=== PATIENT | female | born 1970 ===

== ENCOUNTER → 2019-01-06 | Outpatient (CLI) | payer OTHER ==
[~2019-01-06] VITALS: Ht 170.2 cm; Wt 96.2 kg
[~2019-01-06] MED LIST: ADDERALL 15 MG15 MG PO; GABAPENTIN 100100 MG PO; MODAFINIL200 MG PO; NABUMETONE 500500 M1 PO; NORCO 10-325 T1 EACH PO; OLOPATADINE H30.5 GM NASAL; TRAMADOL 50 MG50 MG PO; VENTOLIN HFA 1818 GM INH; WELLBUTRIN XL300 MG PO; ZANAFLEX4 MG PO
--- NOTE | ~2019-01-06 | HPC ---
[facility] [place] [facility] [address] [place] [address] PAIN MANAGEMENT CONSULTATION Name: DIANE ZAYAS Room #: REG [facility] Curt#: [id number] Admission: 01/06/19 ������������������ Attend Phys: Jason Rinaldi MD Discharge: ������������������ Date of : 70 Report #: [id number] THIS REPORT FOR: //name// CC: [facility] physician/PCP Jason Rinaldi DATE OF SERVICE: 01/06/2019 CHIEF COMPLAINT: Low back pain, now with radiation into the hips and numbness into the lower extremities. HISTORY OF PRESENT ILLNESS: The patient has chronic back pain. Much of her pain is spondylitic, although she has multiple pain generators. She was treated with radiofrequency ablation in the fall of 2017 and had a nice response. When she was last seen, it was at [facility]. Her left-sided RFL was performed in March and then she had it repeated on the opposite side in June. It has only been within the last few months that she has been complaining of more pain. It should be noted, however, the pain is different. She describes her pain as low back, but radiation to the hip and pain moves into her legs with numbness and tingling. It increases when she first stands or when she gets up. It is burning, shooting, cramping, sharp and throbbing. Her intensity is a 7/10. ALLERGIES: TO SULFA AND LEVAQUIN. MEDICATIONS: Wellbutrin, tizanidine, tramadol and nabumetone. PAST MEDICAL HISTORY: Significant for shoulder surgery in 2004, cholecystectomy in 2015 and intermittent depression, which has been chronic and she follows with a psychiatrist. SOCIAL HISTORY: She works part-time at home in [place]. She does not go into the office. 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 She has a 16-year-old and a 11-year-old. She reports that she left full-time work because of pain. She denies use of tobacco. Drinks alcohol 1 or 2 beverages per week; this is generally in a social setting. She is . REVIEW OF SYSTEMS: Positive for some weight gain and complaint of fatigue and weakness. She wears glasses. She complains of some hearing loss after a ruptured eardrum. She has asthma, which flares occasionally, but is not currently present. In the past, she has had issues with constipation, but denies them today. Frequent nocturia. She fell in November while in [place], landing on her head, suffering a concussion. She has recovered fairly fully from that. She was not seen by a medical professional. She reports a history of depression. [facility] [place] [facility] [address] [place] [address] PAIN MANAGEMENT CONSULTATION Name: DIANE ZAYAS Room #: REG [place]ETTE Elias#: [id number] Admission: 01/06/19 ������������������ Attend Phys: Jason Rinaldi MD Discharge: ������������������ Date of : 70 Report #: [id number] PHYSICAL EXAMINATION: She is a very pleasant 48-year-old female. She moves independently from sitting to standing position. Her gait demonstrates some slight weakness. She was little unsteady when she turned and returned to the room. She has good range of motion of the lumbar spine in flexion and extension. She was previously painful in extension from her spondylitic pain that is showing signs that this is still in force. She has mild tenderness over the right and left sacroiliac joints, right worse than the left. She has decreased sensation in the feet in the L5 distribution. Generalized weakness is noted as described in the gait exam. Deep tendon reflexes are brisk, 2+ at knees and ankles and symmetrical. IMAGING DATA: No x-rays of the spine are available to me at this time. IMPRESSION: Chronic low back pain with spondylosis and radiculopathy. PLAN: I would like to hold off on repeating her RFL. It requires treatment of 4 separate joints on each side. An epidural steroid injection may provide relief of multiple pain generators, including the new signs of radiculopathy. We will seek preauthorization for the treatment and have her come back in the clinic in about a week. If she does not respond and if her pain continues to worsen, I would consider repeating her RFL. She has not taken pain medication nor has she had a prescription that I can see on the prescription drug monitoring program information since the prescription provided for her in August. We discussed the use of intermittent pain medication when the pain is very severe. It is clear that she does not use it every day. I provided her with 60 tablets at that time and repeated the prescription for her today. She will carefully safeguard her medications under terms of written opioid agreement, which was reviewed and signed. ��������������������������������������������� ���������������������������������������� By: ��������������������������������������������� [id number] Jason Rinaldi MD /nt
[2019-01-06 12:56] VITALS: BP 115/83
--- NOTE | 2019-01-06 13:15 | NUR ---
Pain Clinic Assessment: 1. History of Osteoarthritis: Not Applicable History of Rheumatoid Arthritis: Not Applicable 2. Height: 5 ft. 7 in. 170.2 cm. Weight: 212.0 lb. oz. 96.163 kg. Patient's BMI: 33.2 3. Vital Signs: BP: 115/83 Pulse: 97 Resp: 16 Temp: 02 Sat: 98 ECG Mon: 4. Pain Intensity: 6-7 5. Fall Risk: Dizziness: Needs help standing or walking: Fallen in the last 3 months: Fall risk comments: 6. Patient on Blood Thinner: None 7. History of Hypertension: N 8. Opioid Therapy greater than 6 weeks: Y Opiate Contract Signed: 9. Risk Assessment Tool Provided: 10. Functional Assessment Tool: 11. Recreational Drug Use: Never Drug Type: Tobacco Use: Never Smoker Tobacco Type: Amount or Packs/day: How Many Years: Alcohol Use: Yes Frequency: Weekly Quant: 1-2
== END ==
LOC: PAIN 06:57
DX: M47.26 Other spondylosis with radiculopathy, lumbar region (principal); Z79.899 Other long term (current) drug therapy

== ENCOUNTER → 2019-01-13 | Outpatient (CLI) | payer OTHER ==
[~2019-01-13] VITALS: Ht 170.2 cm; Wt 98.4 kg
--- NOTE | ~2019-01-13 | HPC ---
[facility] [place] [address] PAIN MANAGEMENT CONSULTATION Name: DIANE ZAYAS Room #: REG ODETTE Elias#: [id number] Admission: 01/13/19 ������������������ Attend Phys: Jason Rinaldi MD Discharge: ������������������ Date of : 70 Report #: [id number] THIS REPORT FOR: //name// CC: [facility] physician/PCP Jason Rinaldi DATE OF SERVICE: 01/13/2019 Followup visit for lumbar radiculopathy. The patient was last seen on 01/06/2019 and we received preauthorization to proceed with lumbar epidural injection. We would like to evaluate the response to this injection before we would proceed back to repeat her lumbar medial branch radiofrequency. That was helpful for her mid back pain, but she now has radicular symptoms. It should be noted that during the performance of the injection, it was clear that she has evidence of an L4-L5 anterolisthesis. This could be the cause of post lumbar radicular symptoms as well as her spondylitic pain. Physical exam and findings were unchanged from her visit just 1 week ago. IMPRESSION: Low back pain with radiculopathy and spondylosis. PROCEDURE: Epidural injection, L4-L5, under fluoroscopic guidance. DESCRIPTION OF PROCEDURE: She was taken to the fluoroscopic suite and placed prone. Skin prepped with ChloraPrep. Skin anesthetized over the L4-L5 interspace and a 20-gauge Tuohy epidural needle advanced in the epidural space with loss of resistance technique. No blood or CSF was aspirated. A 1 mL of Omnipaque injected. Good spread of dye observed bilaterally throughout the epidural space. It was then followed by 3 mL of 0.5% lidocaine mixed with 80 mg triamcinolone. She tolerated the procedure well. She was observed for 45 minutes and discharged. Followup visit planned as needed in 1 month or 2 months. We will consider radiofrequency if necessary. ��������������������������������������������� ���������������������������������������� By: ��������������������������������������������� [id number] [id number] Jason Rinaldi MD /nt
[2019-01-13 14:31] VITALS: BP 133/78
--- NOTE | 2019-01-13 14:42 | NUR ---
Pain Clinic Assessment: 1. History of Osteoarthritis: Not Applicable History of Rheumatoid Arthritis: Not Applicable 2. Height: 5 ft. 7 in. 170.2 cm. Weight: 217.0 lb. oz. 98.431 kg. Patient's BMI: 34.0 3. Vital Signs: BP: 133/78 Pulse: 94 Resp: 16 Temp: 02 Sat: 97 ECG Mon: 4. Pain Intensity: 7 5. Fall Risk: Dizziness: Y Needs help standing or walking: N Fallen in the last 3 months: N Fall risk comments: 6. Patient on Blood Thinner: None 7. History of Hypertension: N 8. Opioid Therapy greater than 6 weeks: Y Opiate Contract Signed: 01/06/19 9. Risk Assessment Tool Provided: Opioid Risk Tool 10. Functional Assessment Tool: 11. Recreational Drug Use: Never Drug Type: Tobacco Use: Never Smoker Tobacco Type: Amount or Packs/day: How Many Years: Alcohol Use: Yes Frequency: Weekly Quant: 1-2
== END | disposition home or self-care (01) ==
LOC: PAIN 06:55
DX: M47.26 Other spondylosis with radiculopathy, lumbar region (principal); G89.29 Other chronic pain; Z88.2 Allergy status to sulfonamides; Z88.8 Allergy status to other drugs, medicaments and biological substances; Z79.899 Other long term (current) drug therapy; Z79.891 Long term (current) use of opiate analgesic; Z98.890 Other specified postprocedural states

== ENCOUNTER → 2019-09-05 | Outpatient (CLI) | payer OTHER ==
[~2019-09-05] VITALS: Ht 170.2 cm; Wt 94.8 kg
[~2019-09-05] MED LIST changes: +ALLEGRA ALLERGY60 MG PO; +LEVO-T25 MCG PO; +MEDROLDOSEPACK PO; +ZANAFLEX4 M2 PO
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
[2019-09-05 13:02] VITALS: BP 106/79
--- NOTE | 2019-09-05 13:20 | NUR ---
Pain Clinic Assessment: 1. History of Osteoarthritis: Not Applicable History of Rheumatoid Arthritis: Not Applicable 2. Height: 5 ft. 7 in. 170.2 cm. Weight: 209.0 lb. oz. 94.802 kg. Patient's BMI: 32.7 3. Vital Signs: BP: 106/79 Pulse: 83 Resp: 16 Temp: 02 Sat: 99 ECG Mon: 4. Pain Intensity: 6 5. Fall Risk: Dizziness: N Needs help standing or walking: N Fallen in the last 3 months: N Fall risk comments: 6. Patient on Blood Thinner: None 7. History of Hypertension: N 8. Opioid Therapy greater than 6 weeks: Y Opiate Contract Signed: 01/06/19 9. Risk Assessment Tool Provided: Opioid Risk Tool 10. Functional Assessment Tool: 11. Recreational Drug Use: Never Drug Type: Tobacco Use: Never Smoker Tobacco Type: Amount or Packs/day: How Many Years: Alcohol Use: Yes Frequency: Quant:
== END ==
LOC: PAIN 06:31
DX: M54.16 Radiculopathy, lumbar region (principal)

== ENCOUNTER → 2019-11-14 | Outpatient (CLI) | payer OTHER ==
[~2019-11-14] VITALS: Ht 170.2 cm; Wt 97.9 kg
[2019-11-14 13:24] VITALS: BP 112/80
--- NOTE | 2019-11-14 13:52 | NUR ---
Pain Clinic Assessment: 1. History of Osteoarthritis: Not Applicable History of Rheumatoid Arthritis: Not Applicable 2. Height: 5 ft. 7 in. 170.2 cm. Weight: 215.8 lb. oz. 97.886 kg. Patient's BMI: 33.8 3. Vital Signs: BP: 112/80 Pulse: 83 Resp: 16 Temp: 02 Sat: 97 ECG Mon: 4. Pain Intensity: 6 5. Fall Risk: Dizziness: Y Needs help standing or walking: N Fallen in the last 3 months: N Fall risk comments: 6. Patient on Blood Thinner: None 7. History of Hypertension: N 8. Opioid Therapy greater than 6 weeks: Y Opiate Contract Signed: 01/06/19 9. Risk Assessment Tool Provided: Opioid Risk Tool 10. Functional Assessment Tool: 11. Recreational Drug Use: Never Drug Type: Tobacco Use: Never Smoker Tobacco Type: Amount or Packs/day: How Many Years: Alcohol Use: Yes Frequency: Weekly Quant: 2/WEEK
--- NOTE | 2019-11-15 12:50 | HPC ---
[facility] [address] [address] PAIN MANAGEMENT CONSULTATION Name: PAWAN YAJAIRADIANE Room #: REG ODETTE Elias#: [id number] Admission: 11/14/19 Attend Phys: Moraima Mac Discharge: Date of : 70 Report #: [id number] THIS REPORT FOR: cc: FAM - No family physician/PCP FAM - No family physician/PCP Moraima Mac DATE OF SERVICE: 11/14/2019 CHIEF COMPLAINT: Low back pain with radiculopathy. HISTORY OF PRESENT ILLNESS: This is a 49-year-old female who returns to the pain clinic today for refill of her medications. She has been a stable patient of Dr. Rinaldi for quite some time at [facility] and then recently here at [facility]. She takes oral medications and periodic epidurals. Her last epidural was performed in January. The patient reports she had substantial relief and has been doing quite well since that injection. Today, the patient reports the pain score at 6/10. Pain is located across the lower back, into her buttocks and numbness and tingling that runs into her right foot, not having significant leg pain today. Her pain is increased with standing, walking or sitting for prolonged periods of time. She feels that cold, ice and medication is very beneficial in controlling her pain. Today, she would like refills of her prescriptions as well as to schedule a lumbar epidural steroid injection. She is getting ready to go out of town and feels that the injection would be beneficial prior to increased activity. ALLERGIES: SULFA, LEVAQUIN and AVELOX. CURRENT LIST OF MEDICATIONS: Synthroid, tizanidine 4 mg at bedtime, tramadol 50 mg t.i.d., hydrocodone p.r.n., Rina, albuterol, gabapentin p.r.n., bupropion and nabumetone daily. PQRS: The patient denies rheumatoid or osteoarthritis. Height is 5 feet 7 inches. Weight is 215, BMI is 33. Vital signs: Blood pressure 112/80, pulse is 83, respirations 16, oxygen sat is 97, pain score is 6/10. Complains of slight dizziness, does not need help walking or standing, has not fallen in the last 3 months. The patient denies any blood thinners or medicines for hypertension. Opioid therapy is greater than 6 weeks; therefore, an opioid signed contract is on the chart. Risk assessment tool is low. Functional assessment is 51/60. Recreational drug use, she denies. She is not a smoker and occasionally drinks alcohol. According to the prescription monitoring system, the patient is filling appropriately for her medications. Her morphine mEq is 20-25 morphine mEq per day according to the CDC guidelines. [address] [address] PAIN MANAGEMENT CONSULTATION Name: DIANE ZAYAS Room #: REG CLI M.Robin#: [id number] Admission: 11/14/19 Attend Phys: Moraima Mac Discharge: Date of : 70 Report #: [id number] PHYSICAL EXAMINATION: GENERAL: This is alert and orientated 49-year-old female who appears her stated age, placing her current pain score at 6/10. HEENT: Normocephalic, atraumatic. Extraocular eye muscles are intact. Mucous membranes are moist. MUSCULOSKELETAL: She has an antalgic gait. She moves from sitting to standing position, but does have increased pain when standing. She has tenderness over her sacroiliac joint on her right greater than left, but tenderness as well in the lumbosacral region, radiates into her right hip. She has numbness and tingly located in her right foot. This does follow the L4-L5 dermatomal distribution. The patient has good range of motion of the lumbar spine in the flexion and extension. Lower extremity strength judged to be 5/5 in all major muscle groups. We reviewed the fact that opiate medications are being used to provide analgesia adequate to support activities of daily living, not attempting to achieve a specific pain score on the 0-10 Visual Analog Scale. The current opiate medications are providing sufficient analgesia to allow the patient to participate in activities of daily living. The patient is not exhibiting any aberrant behavior suggestive of drug diversion. The patient is not having any adverse reactions to medications. The patient is not suffering from daytime somnolence or mental acuity changes. The patient is managing opiate-induced constipation with appropriate [id number] agents and dietary considerations. The patient was counseled on concern for caution with operating a motor vehicle while using opiate medications. IMPRESSION: 1. Chronic low back pain with spondylosis. 2. Lumbar radiculopathy. 3. Medication management under terms of written opioid agreement. PLAN: 1. We discussed treatment options with the patient today. The patient is requesting another lumbar epidural steroid injection. I believe that based on her good relief of greater than 80% of her last injection in January, which has significantly decreased her pain for greater than 8 months, a repeat of this injection would be beneficial for this patient. I believe the L4-L5 injection epidural steroid injection may decrease her discomfort as it has in the past. 2. We will seek authorization for this procedure and try to obtain authorization prior to her going out of town next week to be performed by Dr. Jason Rinaldi. 3. Today, we will refill her tramadol 50 mg tablets, #90 as well as hydrocodone 10/325, #75. This is a slight increase for her of this medication since she is going out of town, giving her 15 extra pills if need be when she is active on her vacation. 4. We will refill tizanidine 4 mg at bedtime, #30 with one additional refill [facility] [address] [place] [address] PAIN MANAGEMENT CONSULTATION Name: DIANE ZAYAS Room #: REG ODETTE Elias#: [id number] Admission: 11/14/19 Attend Phys: Moraima Mac Discharge: Date of : 70 Report #: [id number] and nabumetone 500 mg, #30 with one additional refill. All this medicine will be sent electronically to her pharmacy. 5. This case was discussed with Dr. Jason Rinaldi who did see the patient as well and collaborated care. <ELECTRONICALLY SIGNED> By: Moraima Mac 11/15/19 1250 [id number] Moraima Mac /nt
== END ==
LOC: PAIN 06:41
DX: M47.816 Spondylosis without myelopathy or radiculopathy, lumbar region (principal); M54.16 Radiculopathy, lumbar region; F11.20 Opioid dependence, uncomplicated; Z88.2 Allergy status to sulfonamides; Z88.8 Allergy status to other drugs, medicaments and biological substances; Z79.811 Long term (current) use of aromatase inhibitors; Z79.1 Long term (current) use of non-steroidal anti-inflammatories (NSAID); Z79.899 Other long term (current) drug therapy

== ENCOUNTER → 2019-11-21 | Outpatient (CLI) | payer OTHER ==
[~2019-11-21] VITALS: Ht 170.2 cm; Wt 97.0 kg
[~2019-11-21] MED LIST changes: +SYMBICORT160 MCG/4. INH
--- NOTE | ~2019-11-21 | HPC ---
[facility] [place] [address] PAIN MANAGEMENT CONSULTATION Name: DIANE ZAYAS Room #: REG ODETTE Curt#: [id number] Admission: 11/21/19 Attend Phys: Jason Rinaldi MD Discharge: Date of : 70 Report #: [id number] THIS REPORT FOR: cc: [facility] - No family physician/PCP [facility] - No family physician/PCP Jason Rinaldi MD ~ CC: [facility] physician/PCP Jason Rinaldi DATE OF SERVICE: 11/21/2019 Followup visit for chronic low back pain with radiculopathy. The patient returns to pain clinic today for repeat epidural injection. She has had good response to these injections performed intermittently. She has known degenerative disease of her lumbar spine and her radicular symptoms consistent with her changes at L4-L5. Her last injection was performed there and it has been almost 10 months. Today, she describes her pain prior to the injection as a 6/10. It is worse with standing and weightbearing and follows a dermatomal distribution into the legs. PHYSICAL EXAMINATION: Blood pressure 124/89, heart rate 56, respirations 16, BMI 33.5. She ambulates without difficulty. Straight leg raising bilaterally is uncomfortable radiating pain into the legs following a dermatomal distribution of L4-L5. IMPRESSION: Lumbar radiculopathy. PROCEDURE: Epidural steroid injection. After informed consent, she was taken to the fluoroscopic suite, placed prone, skin prepped with ChloraPrep. Skin anesthetized over L4-L5. A 20-gauge Tuohy epidural needle advanced in the epidural space with loss of resistance. There was no blood or CSF aspirated. A 1 mL of Omnipaque injected. Good spread of dye observed into the epidural space followed by 3 mL of 0.5% lidocaine mixed with 80 mg triamcinolone. She tolerated the procedure well and was observed for 45 minutes and discharged. Follow up as needed. By: 1220 [id number] Jason Rinaldi MD /nt
[2019-11-21 10:36] VITALS: BP 124/89
--- NOTE | 2019-11-21 10:42 | NUR ---
Pain Clinic Assessment: 1. History of Osteoarthritis: Not Applicable History of Rheumatoid Arthritis: Not Applicable 2. Height: 5 ft. 7 in. 170.2 cm. Weight: 213.8 lb. oz. 96.979 kg. Patient's BMI: 33.5 3. Vital Signs: BP: 124/89 Pulse: 56 Resp: 16 Temp: 02 Sat: 98 ECG Mon: 4. Pain Intensity: 6 5. Fall Risk: Dizziness: N Needs help standing or walking: N Fallen in the last 3 months: N Fall risk comments: 6. Patient on Blood Thinner: None 7. History of Hypertension: N 8. Opioid Therapy greater than 6 weeks: Y Opiate Contract Signed: 01/06/19 9. Risk Assessment Tool Provided: Opioid Risk Tool 10. Functional Assessment Tool: 11. Recreational Drug Use: Never Drug Type: Tobacco Use: Never Smoker Tobacco Type: Amount or Packs/day: How Many Years: Alcohol Use: Yes Frequency: Quant:
== END | disposition home or self-care (01) ==
LOC: PAIN 06:45
DX: M54.16 Radiculopathy, lumbar region (principal); G89.29 Other chronic pain; Z98.890 Other specified postprocedural states; Z79.899 Other long term (current) drug therapy; Z88.2 Allergy status to sulfonamides; Z88.8 Allergy status to other drugs, medicaments and biological substances

== ENCOUNTER → 2020-04-12 | Outpatient (CLI) | payer OTHER ==
[~2020-04-12] VITALS: Ht 170.2 cm; Wt 94.4 kg
[2020-04-12 09:56] VITALS: BP 118/82
--- NOTE | 2020-04-12 10:02 | NUR ---
Pain Clinic Assessment: 1. History of Osteoarthritis: Not Applicable History of Rheumatoid Arthritis: Not Applicable 2. Height: 5 ft. 7 in. 170.2 cm. Weight: 208.2 lb. oz. 94.439 kg. Patient's BMI: 32.6 3. Vital Signs: BP: 118/82 Pulse: 93 Resp: 18 Temp: 02 Sat: 97 ECG Mon: 4. Pain Intensity: 6-7 5. Fall Risk: Dizziness: N Needs help standing or walking: N Fallen in the last 3 months: N Fall risk comments: 6. Patient on Blood Thinner: None 7. History of Hypertension: N 8. Opioid Therapy greater than 6 weeks: Y Opiate Contract Signed: 01/06/19 9. Risk Assessment Tool Provided: Opioid Risk Tool 10. Functional Assessment Tool: 11. Recreational Drug Use: Never Drug Type: Tobacco Use: Never Smoker Tobacco Type: Amount or Packs/day: How Many Years: Alcohol Use: Yes Frequency: Weekly Quant: 1/WEEK
--- NOTE | 2020-04-16 13:22 | HPC ---
[facility] [address] [place] [address] PAIN MANAGEMENT CONSULTATION Name: SOLITARIOKENJIMAYKEL GATESDIANE Room #: REG ODETTE Elias#: [id number] Admission: 04/12/20 Attend Phys: Moraima Mac Discharge: Date of : 70 Report #: [id number] THIS REPORT FOR: cc: FAM - No family physician/PCP FAM - No family physician/PCP Moraima Mac ~ CC: Jason Rinaldi MD DATE OF SERVICE: 04/12/2020 CHIEF COMPLAINT: Chronic low back pain. HISTORY OF PRESENT ILLNESS: This is a 49-year-old female who returns to the pain clinic today, she is reporting an increase in her pain across her lower back, rating her pain score of 6-7. She states that she had a flare last week, was in bed most of the weekend due to increasing pain across her back. It had been going in her thighs and hips, but the injection that Dr. Jason Rinaldi performed in November was beneficial relieving those symptoms. She states at least 75%, but unfortunately only lasted 2-3 weeks. She states that her pain is worse with prolonged walking or standing, sometimes even lying down, but most often lying down as well as stretching and her medicine have been beneficial. Today, her pain score is 6-7. She denies problems with constipation. She does try to take her pain medications sparingly and the last prescriptions have lasted her several months. ALLERGIES: SULFA, LEVOFLOXACIN, AND AVELOX. CURRENT MEDICATIONS: Symbicort, tizanidine, nabumetone, tramadol, hydrocodone, levothyroxine, Rina, bupropion and gabapentin. PQRS: 1. She denies any osteoarthritis or rheumatoid arthritis, but does have spondylosis of the lumbar spine. 2. Height is 5 feet 7 inches, weight is 208, BMI is 32. Vital signs; blood pressure 118/82, pulse is 93, respirations 18, and oxygen sat is 97%. 3. Pain score is 6-7. 4. Fall risk. Denies dizziness, does not need help walking or standing, has not fallen in the last 3 months. The patient is not on blood thinners or hypertension medicines. 5. Opioid therapy is greater than 6 weeks; therefore, an opioid signed contract is on the chart. Risk assessment is low. Functional assessment is 51/60. 6. Recreational drug use, she denies. She is not a smoker and occasionally drinks alcohol. According to the prescription monitoring system, the patient is filling appropriately. She does take her medicines very sparingly, so her last [facility] [address] [place] [address] PAIN MANAGEMENT CONSULTATION Name: DIANE ZAYAS Room #: REG Sandhya Elias#: [id number] Admission: 04/12/20 Attend Phys: Moraima Mac Discharge: Date of : 70 Report #: [id number] prescription fill was in November. PHYSICAL EXAMINATION: GENERAL: This is alert and orientated 49-year-old female who appears her stated age, placing her current pain score at 6-7. HEENT: Normocephalic and atraumatic. Extraocular eye muscles are intact. She is wearing a mask today. MUSCULOSKELETAL: She moves slowly from the sitting to standing position. She has tenderness over her lumbar region, worse on the left than the right. Lumbar provocation testing is met with increasing pain. Pain with forward flexion and extension as well as lateral tilt. Minimal radicular symptoms today, they do radiate into her upper buttocks. Sensation and strength in the lower extremities are normal at 5/5. ASSESSMENT: 1. Chronic low back pain with spondylosis. 2. Lumbar spondylosis. 3. Lumbar radiculopathy. 4. Axial back pain. 5. Management of medications under terms of written opioid agreement. PLAN: 1. We discussed treatment options with the patient today. The patient is requesting refills of her medications. She does take these very sparingly. We will send these electronically today for her tramadol 50 mg, #90 and hydrocodone 10/325, #75. I will send her tizanidine 4 mg at bedtime, #30 with 2 additional refills and nabumetone 500 mg b.i.d., #60 with 2 additional refills. 2. We will seek authorization for a lumbar facet injection. The patient has had these in the past as well as radiofrequency ablation on both sides at [facility] by Dr. Jason Rinaldi. They were beneficial it has been almost 2 years since this was performed. Based on her symptoms and exam today, I believe that she may benefit from repeat of these procedures. We will start with facet injections at L3,L4,and L5 to help treat this axial back pain and spondylosis. 3. She did have a lumbar epidural steroid injection that did benefit her leg pain that has been mostly resolved. She had 75% improvement of that injection that lasted for about a month that was performed in November by Dr. Rinaldi. 4. We will obtain a preauthorization and hopefully see the patient back at the end of April for the facet injections to be performed by Dr. Rinaldi. The patient was seen today in collaboration with Dr. Marcos Méndez who is covering for Dr. Rinaldi. <ELECTRONICALLY SIGNED> By: Moraima Mac 04/16/20 1322 [id number] Moraima Mac /john
== END ==
LOC: PAIN 06:45
PROVIDERS: ATTEND Clinical Nurse Specialist Adult Health
DX: M47.26 Other spondylosis with radiculopathy, lumbar region (principal); G89.29 Other chronic pain; F11.20 Opioid dependence, uncomplicated; Z88.8 Allergy status to other drugs, medicaments and biological substances; Z79.899 Other long term (current) drug therapy

== ENCOUNTER → 2020-07-05 | Outpatient (CLI) | payer OTHER ==
[~2020-07-05] VITALS: Ht 170.2 cm; Wt 98.0 kg
[~2020-07-05] MED LIST changes: +NABUMETONE 500500 M2 PO; +NEURONTIN100 MG PO
[2020-07-05 09:37] VITALS: BP 127/80
--- NOTE | 2020-07-05 09:48 | NUR ---
Pain Clinic Assessment: 1. History of Osteoarthritis: LUMBAR SPINE History of Rheumatoid Arthritis: Not Applicable 2. Height: 5 ft. 7 in. 170.2 cm. Weight: 216.0 lb. oz. 97.977 kg. Patient's BMI: 33.8 3. Vital Signs: BP: 127/80 Pulse: 77 Resp: 18 Temp: 02 Sat: 98 ECG Mon: 4. Pain Intensity: 6 5. Fall Risk: Dizziness: N Needs help standing or walking: N Fallen in the last 3 months: N Fall risk comments: 6. Patient on Blood Thinner: None 7. History of Hypertension: N 8. Opioid Therapy greater than 6 weeks: Y Opiate Contract Signed: 01/06/19 9. Risk Assessment Tool Provided: Opioid Risk Tool 10. Functional Assessment Tool: 11. Recreational Drug Use: Never Drug Type: Tobacco Use: Never Smoker Tobacco Type: Amount or Packs/day: How Many Years: Alcohol Use: Yes Frequency: Quant:
--- NOTE | 2020-07-05 15:32 | HPC ---
[facility] [address] [place] [address] PAIN MANAGEMENT CONSULTATION Name: DIANE ZAYAS Room #: REG ODETTE Elias#: [id number] Admission: 07/05/20 Attend Phys: Moarima Mac Discharge: Date of : 70 Report #: [id number] CC: Moraima Rinaldi MD DATE OF SERVICE: 07/05/2020 CHIEF COMPLAINT: Chronic low back pain. HISTORY OF PRESENT ILLNESS: This is a pleasant 50-year-old female who returns to the pain clinic today for refill of her medications and also to discuss facet joint injections. The patient was last here in April. At that time, we did discuss her returning for a lumbar facet injections, she had gone to [place] and was exposed to COVID and was unable to make the followup appointment due to being in quarantine. So today, she was wondering if she would be able to schedule that appointment due to the fact that her pain has been increasing in her lumbar spine and into her buttocks. It is a burning, cramping, aching sensation. Rating her pain today as 6/10. She reports that her pain is worse with prolonged sitting, standing and exercising. She states that she has found she has been taking her hydrocodone on a daily basis as well as her tramadol. When her pain is decreased she reports she is able to get by with less opioid medications. She does continue to take her muscle relaxant every evening as well as her nabumetone now taking it twice a day to help relieve some of her ongoing pain symptoms. The patient has reported that she is walking more and that does increase her pain, though it does help some of her generalized aches and pains feel better. She states she is having more issues with constipation since she has increased her opioid use. ALLERGIES: SULFA, LEVAQUIN AND AVELOX. CURRENT MEDICATIONS: Tramadol 50 mg p.r.n., hydrocodone 10/325 for severe pain, nabumetone 500 mg b.i.d., tizanidine 4 mg at bedtime, levothyroxine, bupropion, gabapentin p.r.n. PQRS: 1. She has osteoarthritis in her lumbar spine. Denies any rheumatoid arthritis. 2. Height is 5 feet 7 inches, weight is 216, BMI is 33. 3. Vital signs; blood pressure 127/80, pulse is 77, respirations 18, oxygen sat is 98. 4. Pain score 6/10. 5. Denies dizziness, does not need help walking or standing, has not fallen in the last 3 months. 6. The patient is not on any blood thinners or medicine for hypertension. 7. Opioid therapy is greater than 6 weeks; therefore, an opioid signed contract is on the chart. Risk assessment tool is low. Functional assessment is 51/60. 8. Recreational drug use, she denies. She is not a smoker and occasionally drinks alcohol. According to the prescription monitoring system, she is filling appropriately for her medications. She does take dextroamphetamine and fill those on a timely fashion as well. PHYSICAL EXAMINATION: GENERAL: This is alert and orientated, well-developed, well-nourished 50-year-old female who appears her stated age, placing her current pain score at 6/10. HEENT: Normocephalic, atraumatic. Extraocular eye muscles are intact. She is wearing a mask. MUSCULOSKELETAL: She has tenderness over the lumbar region. Lumbar provocation testing is met with increasing pain, especially pain is increased with forward flexion and lateral tilt. Radicular symptoms only in her upper buttocks today. Lower extremity strength is symmetrical bilaterally 5/5 with good sensation from L1-S2. She has a slightly antalgic gait. ASSESSMENT: 1. Chronic low back pain with spondylosis. 2. Lumbar spondylosis. 3. Lumbar radiculopathy. 4. Axial back pain. 5. Management of medications under terms of written opioid agreement. We reviewed the fact that opiate medications are being used to provide analgesia adequate to support activities of daily living, not attempting to achieve a specific pain score on the 0-10 Visual Analog Scale. The current opiate medications are providing sufficient analgesia to allow the patient to participate in activities of daily living. The patient is not exhibiting any aberrant behavior suggestive of drug diversion. The patient is not having any adverse reactions to medications. The patient is not suffering from daytime somnolence or mental acuity changes. The patient is managing opiate-induced constipation with appropriate [id number] agents and dietary considerations. The patient was counseled on concern for caution with operating a motor vehicle while using opiate medications. PLAN: 1. We discussed treatment options with the patient today. The patient is noticing increasing pain in her lower back. She would like to schedule her for facet joint injections. She was unable to have these done in April due to COVID quarantine. We do have an authorization that is present on her chart. We will seek to extend this date and schedule her for bilateral facet injection by Dr. Jason Rinaldi. She has had much success with this in the past as well as radiofrequency for treating her axial back pain and spondylosis. I believe Dr. Jason Rinaldi will do the facet injections at the L3, L4 and L5 level. 2. We did discuss her medications. She has been having some increasing constipation due to increase in her pain pills. We discussed [id number] laxatives such as MiraLax, taking this on an as needed basis. I believe she will not need it every day. The patient states she will try this and hopefully be able to decrease her opioids again once she has her injection next week. 3. Scripts sent today for tramadol 50 mg #90 and hydrocodone 10/325, #[address] Rinaldi. I will send her tizanidine 4 mg, #30 with 2 additional refills as well as her nabumetone 500 mg, #60 with 2 refills. The patient is seen in collaboration with Dr. Rinaldi. She will return next week for her injections. <ELECTRONICALLY SIGNED> By: Moraima Mac 07/05/20 1532 [id number] Moraima Mac /john
== END ==
LOC: PAIN 04-30 08:19
PROVIDERS: ATTEND Clinical Nurse Specialist Adult Health
DX: M47.26 Other spondylosis with radiculopathy, lumbar region (principal); G89.29 Other chronic pain; Z79.891 Long term (current) use of opiate analgesic

== ENCOUNTER → 2020-07-12 | Outpatient (CLI) | payer OTHER ==
[~2020-07-12] VITALS: Ht 170.2 cm; Wt 96.4 kg
[2020-07-12 09:36] VITALS: BP 114/77
--- NOTE | 2020-07-12 09:52 | NUR ---
Pain Clinic Assessment: 1. History of Osteoarthritis: LUMBAR SPINE History of Rheumatoid Arthritis: Not Applicable 2. Height: 5 ft. 7 in. 170.2 cm. Weight: 212.6 lb. oz. 96.435 kg. Patient's BMI: 33.3 3. Vital Signs: BP: 114/77 Pulse: 86 Resp: 16 Temp: 02 Sat: 99 ECG Mon: 4. Pain Intensity: 7 5. Fall Risk: Dizziness: N Needs help standing or walking: N Fallen in the last 3 months: N Fall risk comments: 6. Patient on Blood Thinner: None 7. History of Hypertension: N 8. Opioid Therapy greater than 6 weeks: Y Opiate Contract Signed: 01/06/19 9. Risk Assessment Tool Provided: Opioid Risk Tool 10. Functional Assessment Tool: 11. Recreational Drug Use: Never Drug Type: Tobacco Use: Never Smoker Tobacco Type: Amount or Packs/day: How Many Years: Alcohol Use: Yes Frequency: Weekly Quant: 2/week
== END | disposition home or self-care (01) ==
LOC: PAIN 06:51
PROVIDERS: ATTEND Anesthesiology Pain Medicine
DX: M47.816 Spondylosis without myelopathy or radiculopathy, lumbar region (principal); G89.29 Other chronic pain; Z98.890 Other specified postprocedural states; Z79.899 Other long term (current) drug therapy; Z79.891 Long term (current) use of opiate analgesic; Z88.8 Allergy status to other drugs, medicaments and biological substances; Z88.2 Allergy status to sulfonamides

== ENCOUNTER → 2020-08-09 | Outpatient (CLI) | payer OTHER ==
[~2020-08-09] VITALS: Ht 170.2 cm; Wt 97.3 kg
[~2020-08-09] MED LIST changes: +HYDROCODONE-AP1 EA11 PO
[2020-08-09 09:13] VITALS: BP 119/87
--- NOTE | 2020-08-09 09:28 | NUR ---
Pain Clinic Assessment: 1. History of Osteoarthritis: LUMBAR SPINE History of Rheumatoid Arthritis: Not Applicable 2. Height: 5 ft. 7 in. 170.2 cm. Weight: 214.6 lb. oz. 97.342 kg. Patient's BMI: 33.6 3. Vital Signs: BP: 119/87 Pulse: 86 Resp: 16 Temp: 02 Sat: 98 ECG Mon: 4. Pain Intensity: 4 TO 10 5. Fall Risk: Dizziness: N Needs help standing or walking: N Fallen in the last 3 months: N Fall risk comments: 6. Patient on Blood Thinner: None 7. History of Hypertension: N 8. Opioid Therapy greater than 6 weeks: Y Opiate Contract Signed: 01/06/19 9. Risk Assessment Tool Provided: Opioid Risk Tool 10. Functional Assessment Tool: 11. Recreational Drug Use: Never Drug Type: Tobacco Use: Never Smoker Tobacco Type: Amount or Packs/day: How Many Years: Alcohol Use: Yes Frequency: Weekly Quant: 1-2
== END | disposition home or self-care (01) ==
LOC: PAIN 06:38
PROVIDERS: ATTEND Anesthesiology Pain Medicine
DX: M47.816 Spondylosis without myelopathy or radiculopathy, lumbar region (principal); M54.5 Low back pain; G89.29 Other chronic pain; Z98.890 Other specified postprocedural states; Z79.899 Other long term (current) drug therapy; Z87.891 Personal history of nicotine dependence; Z88.2 Allergy status to sulfonamides; Z88.8 Allergy status to other drugs, medicaments and biological substances

== ENCOUNTER → 2021-03-07 | Outpatient (CLI) | payer OTHER ==
[~2021-03-07] VITALS: Ht 170.2 cm; Wt 95.7 kg
[~2021-03-07] MED LIST changes: +NUVIGIL150 MG PO; +TIZANIDINE HCL4 M2 PO
[2021-03-07 15:17] VITALS: BP 97/66
--- NOTE | 2021-03-07 15:41 | NUR ---
Pain Clinic Assessment: 1. History of Osteoarthritis: LUMBAR SPINE History of Rheumatoid Arthritis: Not Applicable 2. Height: 5 ft. 7 in. 170.2 cm. Weight: 211.0 lb. oz. 95.709 kg. Patient's BMI: 33.0 3. Vital Signs: BP: 97/66 Pulse: 96 Resp: 16 Temp: 02 Sat: 98 ECG Mon: 4. Pain Intensity: 6 TODAY, GOOD DAY TODAY 5. Fall Risk: Dizziness: N Needs help standing or walking: N Fallen in the last 3 months: Y Fall risk comments: 6. Patient on Blood Thinner: None 7. History of Hypertension: N 8. Opioid Therapy greater than 6 weeks: Y Opiate Contract Signed: 01/06/19 9. Risk Assessment Tool Provided: 6--MODERATE RISK 10. Functional Assessment Tool: 11. Recreational Drug Use: Never Drug Type: Tobacco Use: Never Smoker Tobacco Type: Amount or Packs/day: How Many Years: Alcohol Use: Yes Frequency: Special Occasions Quant:
[2021-03-07 15:55] VITALS: BP 92/57
== END ==
LOC: PAIN 11:10
PROVIDERS: ATTEND Clinical Nurse Specialist Adult Health
DX: M47.816 Spondylosis without myelopathy or radiculopathy, lumbar region (principal); G89.29 Other chronic pain; Z72.89 Other problems related to lifestyle; Z56.0 Unemployment, unspecified; Z79.891 Long term (current) use of opiate analgesic; Z79.899 Other long term (current) drug therapy; Z88.2 Allergy status to sulfonamides; Z88.1 Allergy status to other antibiotic agents

== ENCOUNTER → 2021-05-23 | Outpatient (CLI) | payer OTHER ==
[~2021-05-23] VITALS: Ht 170.2 cm; Wt 91.8 kg
[~2021-05-23] MED LIST changes: +HYDROCODON-ACE1 EAC5 PO
[2021-05-23 11:01] VITALS: BP 105/73
--- NOTE | 2021-05-23 11:45 | NUR ---
Pain Clinic Assessment: 1. History of Osteoarthritis: LUMBAR SPINE History of Rheumatoid Arthritis: Not Applicable 2. Height: 5 ft. 7 in. 170.2 cm. Weight: 202.4 lb. oz. 91.808 kg. Patient's BMI: 31.7 3. Vital Signs: BP: 105/73 Pulse: 92 Resp: 18 Temp: 02 Sat: 100 ECG Mon: 4. Pain Intensity: 6 5. Fall Risk: Dizziness: N Needs help standing or walking: N Fallen in the last 3 months: N Fall risk comments: 6. Patient on Blood Thinner: None 7. History of Hypertension: N 8. Opioid Therapy greater than 6 weeks: Y Opiate Contract Signed: 01/06/19 9. Risk Assessment Tool Provided: 6--MODERATE RISK 10. Functional Assessment Tool: 11. Recreational Drug Use: Never Drug Type: Tobacco Use: Never Smoker Tobacco Type: Amount or Packs/day: How Many Years: Alcohol Use: No Frequency: Quant:
== END ==
LOC: PAIN 07:08
PROVIDERS: ATTEND Anesthesiology Pain Medicine
DX: G89.29 Other chronic pain (principal); M47.26 Other spondylosis with radiculopathy, lumbar region; M25.551 Pain in right hip

== ENCOUNTER → 2021-05-27 | Outpatient (CLI) | payer OTHER ==
[~2021-05-27] VITALS: Ht 170.2 cm; Wt 92.2 kg
[2021-05-27 11:44] VITALS: BP 106/74
== END | disposition home or self-care (01) ==
LOC: PAIN 07:08
PROVIDERS: ATTEND Anesthesiology Pain Medicine
DX: M54.16 Radiculopathy, lumbar region (principal); G89.29 Other chronic pain; Z88.2 Allergy status to sulfonamides; Z88.8 Allergy status to other drugs, medicaments and biological substances; Z98.890 Other specified postprocedural states; Z79.899 Other long term (current) drug therapy